=== PATIENT | male | born 1940 | race Caucasian/White ===

== ENCOUNTER 2016-09-14 09:12 | Day surgery (SDC) | payer MEDICARE, OTHER ==
[~2016-09-14] VITALS: Ht 177.8 cm; Wt 80.0 kg
[~2016-09-14 09:12] MED LIST: ASPI325T32 PO; ATOR20TA PO; LOSA25TA2 PO; NIAC1000 PO; OMEG1CAP2 PO; ROSU40TA PO; Sodium Chloride LOK Flush 10 mL Syringe IV PRN; fentaNYL-PF 50 mCg/mL 2 mL Inj IVPUSH PRN
[2016-09-14] MEDS ORDERED: ROSU40TA PO (09:35)
[2016-09-14] MEDS ORDERED: OMEP20TA24 PO (09:35)
[2016-09-14 09:36] VITALS: BP 129/87; PULSE 67; RESP 12; O2SAT 98
[2016-09-14] MEDS: 0.9% Sodium Chloride 1,000 ML IV PRN ×2 (09:51→10:50)
[2016-09-14 11:10] VITALS: BP 112/69; PULSE 64; RESP 14; O2SAT 94
[2016-09-14 11:21] VITALS: BP 101/64; PULSE 73; RESP 14; O2SAT 94
--- NOTE | 2016-09-14 16:10 | ENDO ---
[address] [address] ENDOSCOPY PROCEDURE PATIENT: CECY ORTA : 1940 MR#: [id number] ADMIT: 09/14/2016 JOB ID: [id number] PROCEDURE: Esophagogastroduodenoscopy with hot snare polypectomy and biopsies and a colonoscopy with hot snare polypectomy, random colon biopsies and cold forceps polypectomy. INDICATIONS: A 76-year-old male with a history of reflux and gastric polyps. He has had both fundic gland and hyperplastic histology. Surveillance is pursued. He additionally has noted a change in bowel habit in the last year with an increased tendency towards loose stool. He has a personal history of colon polyps, and therefore, repeat colonoscopy is pursued. EQUIPMENT: GIF-H180J and a PCF-H180AL. SEDATION: 9 mg Versed, 200 mcg fentanyl. COMPLICATIONS: None identified. BOWEL PREPARATION: Fair, adequate exam. PROCEDURE INFORMATION: After the risks and benefits were explained, written and verbal informed consent was obtained, the patient was brought into the endoscopy suite and placed into the left lateral decubitus position. Sedation was achieved as above, the scope introduced into the mouth through the bite block, and advanced to the second portion of the duodenum. The scope was slowly withdrawn to carefully examine the mucosa for any defects or lesions. Retroflexed views were accomplished in the stomach. The stomach was decompressed. The scope removed from the patient who tolerated the procedure well. The patient was then turned around. A digital rectal examination accomplished. No significant pathology appreciated. The scope was introduced into the rectum and advanced to the cecum as identified by the appendiceal orifice and ileocecal valve. The terminal ileum was briefly accessed. The scope was then slowly withdrawn to carefully examine the mucosa for any defects or lesions. Multiple direct views were made through the dentate line for exclusion of pathology. The colon was decompressed. The scope removed from the patient who tolerated the procedure well. FINDINGS: 1. Duodenum: No pathology from the bulb through to the second portion. Random biopsies were taken from D2 for exclusion of celiac in light of his tendency towards loose bowel. 2. Stomach: No mass lesions. No outlet obstruction. Retroflexed views of the LES disclosed a sliding hiatal hernia. Minimal gastropathy was seen throughout. Three of the larger benign appearing polyps were removed using hot snare. The smallest was able to be aspirated through the accessory channel of the scope. The two larger polyps we removed by way of [employer]. The small polyp was perhaps 5 mm in size and the larger ones were in the neighborhood of 7-8 mm. No other pathology appreciated in the stomach. 3. Esophagus: The squamocolumnar junction correlated nicely with the top of the gastric folds. The GEJ was judged to be at about 39 cm from the incisors and the diaphragmatic pinchcock was at about 42 cm from the incisors. No acute erosive changes. No strictures. No mass lesions. 4. Terminal ileum: This appeared visually normal. 5. Colon: No macroscopic colitis throughout. Random colon biopsies were taken for exclusion of microscopic disease. In the right colon, there were three polyps seen and removed. All quite small. The largest was perhaps in the 6 mm range. Two of these came by way of hot snare and the smallest by way of cold forceps.There was some mild diverticulosis seen in the left colon. ENDOSCOPIC DIAGNOSES: 1. Hiatal hernia. 2. Gastric polyps. 3. Colon polyps. 4. Diverticulosis. RECOMMENDATIONS: 1. Await histopathology. 2. Repeat EGD in 2-3 years for surveillance considering past history of hyperplastic histology. 3. Repeat colonoscopy in three years considering the likelihood that all three of these polyps will shank turner to be adenoma today. [facility]
--- NOTE | 2016-09-16 09:51 | PATH ---
SURGICAL PATHOLOGY Attending Physician:Vaishali Hyman CASE STATUS: Signed Out PATIENT NAME: CECY ORTA PID: [id number] : 1940 DATE COLLECTED:09/14/2016 21:23 SPECIMEN: 1: Stomach, Polyp, Biopsy 2: Duodenum, Biopsy 3: Colon, Biopsy 4: Colon, Biopsy CLINICAL HISTORY: 1). GASTRIC POLYPS 2). DUODENUM BIOPSY 3). COLON POLYPS 4). RANDOM COLON BIOPSY FINAL DIAGNOSIS: 1. Gastric Polyp: Fundic gland polyp. No evidence of malignancy or dysplasia. Negative for intestinal metaplasia. 2. Duodenum, Biopsy: Normal duodenal mucosa. No significant inflammation identified. No evidence of malignancy or dysplasia. Negative for features of celiac disease. 3. Colon Polyps: Tubular adenomas (5 fragments). 4. Random Colon Biopsies: Normal colonic mucosa. No significant inflammation identified. No evidence of malignancy or dysplasia. ICD10 D13.1; D12.6 GROSS DESCRIPTION: The specimen is received in four formalin filled containers labeled with the patient's name. 1). The specimen is sublabeled "gastric polyps" and consists of 3 portions of tissue which aggregate to 0.6 x 0.6 x 0.5 CM. The specimen is entirely submitted in cassette 1A. 2). The specimen is sublabeled "duodenal" and consists of 2 portions of tissue which aggregate to 0.3 x 0.3 x 0.2 CM. The specimen is entirely submitted in cassette 2A. 3). The specimen is sublabeled "colon polyps" and consists of 6 portions of tissue which aggregate to 0.5 x 0.5 x 0.4 CM. The specimen is entirely submitted in cassette 3A. 4). The specimen is sublabeled "random colon" and consists of 2 portions of tissue which aggregate to 0.4 x 0.3 x 0.2 CM. The specimen is entirely submitted in cassette 4A. 09/14/2016 [facility] ICD-9 CODES: CPT CODES: 1: 34432 2: 03572 3: 19470 4: 10223 Electronically Signed Out Eddie Aiken MD [facility], [place] [address] Technical component performed at [facility], [facility] [address], [place], [address]
== END 2016-09-14 23:59 | disposition home or self-care (01) ==
LOC: END 09:12
PROVIDERS: ATTEND Internal Medicine Gastroenterology
DX: Z12.11 Encounter for screening for malignant neoplasm of colon (principal); D12.2 Benign neoplasm of ascending colon; K57.30 Diverticulosis of large intestine without perforation or abscess without bleeding; K31.7 Polyp of stomach and duodenum; K44.9 Diaphragmatic hernia without obstruction or gangrene; Z86.010 Personal history of colon polyps; K21.9 Gastro-esophageal reflux disease without esophagitis; N40.1 Benign prostatic hyperplasia with lower urinary tract symptoms; Z79.82 Long term (current) use of aspirin
CPT/HCPCS: 43239; 45380; 45385; 88305; 99153; G0500; J7030